=== PATIENT | male | born 1950 | race African-American/Black ===

== ENCOUNTER 2017-03-01 19:10 | Emergency (ER) | payer SELFPAY ==
[~2017-03-01] VITALS: Ht 167.6 cm; Wt 84.1 kg
[2017-03-01 19:10] VITALS: BP 178/84
== END 2017-03-01 22:15 | disposition left against medical advice (07) ==
LOC: ER 19:10
DX: Z53.21 Procedure and treatment not carried out due to patient leaving prior to being seen by health care provider (principal)

== ENCOUNTER 2017-03-02 11:57 | Emergency (ER) | payer MEDICARE, MEDICAID ==
[~2017-03-02] VITALS: Ht 167.6 cm; Wt 84.0 kg
[2017-03-02] MEDS ORDERED: KETOROLAC 30MG/ML VIAL IM ONE (13:45)
[2017-03-02 13:48] VITALS: BP 119/74
== END 2017-03-02 15:45 | disposition home or self-care (01) ==
LOC: ER 15:00
DX: S39.012A Strain of muscle, fascia and tendon of lower back, initial encounter (principal); W20.8XXA Other cause of strike by thrown, projected or falling object, initial encounter; R03.0 Elevated blood-pressure reading, without diagnosis of hypertension; Y93.89 Activity, other specified; Y92.69 Other specified industrial and construction area as the place of occurrence of the external cause; Y99.0 Civilian activity done for income or pay
CPT/HCPCS: 96372; 99283; J1885

== ENCOUNTER 2017-08-30 20:55 | Emergency (ER) | payer MEDICARE, MEDICAID ==
[~2017-08-30] VITALS: Ht 167.6 cm; Wt 82.0 kg
[2017-08-30 21:40] VITALS: BP 166/88
[2017-08-30] MEDS ORDERED: NAPROXEN 500MG TABLET PO ONE (22:15)
== END 2017-08-30 22:42 | disposition home or self-care (01) ==
LOC: ER 20:55
DX: S10.93XA Contusion of unspecified part of neck, initial encounter (principal); S30.0XXA Contusion of lower back and pelvis, initial encounter; V49.49XA Driver injured in collision with other motor vehicles in traffic accident, initial encounter; Y93.89 Activity, other specified; Y92.62 Dock or shipyard as the place of occurrence of the external cause; Y99.0 Civilian activity done for income or pay; I10 Essential (primary) hypertension
CPT/HCPCS: 99283

== ENCOUNTER 2017-12-10 15:50 | Emergency (ER) | payer MEDICARE, MEDICAID ==
[2017-12-10 16:41] LABS: BASOPHILS % 0.3 % (0.0-2.0); HEMATOCRIT. 41.7 % (42.0-52.0); HEMOGLOBIN. 14.1 g/dL (14.0-18.0); LYMPHOCYTES % 31.1 % (20.0-50.0); MEAN CORPUSCULAR HEMOGLOBIN 31.6 pg (28.0-32.0); MEAN CORPUSCULAR VOLUME 93.8 fL (80.0-94.0); MEAN PLATELET VOLUME 8.8 fl (7.4-10.4); MONOCYTES % 6.3 % (2.0-8.0); NEUTROPHILS % 60.3 % (40.0-76.0); PLATELET 210 x1000/uL (130-400); RED BLOOD CELL COUNT 4.45 mill/uL (4.7-6.1)
[2017-12-10 16:42] LABS: CHLORIDE 105 mEq/L (98-107)
[2017-12-10 16:44] LABS: ETHANOL BLOOD < 10 mg/dL
[2017-12-10 18:30] VITALS: BP 151/92
== END 2017-12-10 19:09 | disposition left against medical advice (07) ==
LOC: ER 16:48
DX: I10 Essential (primary) hypertension (principal)
CPT/HCPCS: 36415; 80048; 85025; 99284; G0482